=== PATIENT | male | born 1970 ===

== ENCOUNTER 2018-11-25 20:22 | Emergency (ER) | payer SELFPAY ==
[~2018-11-25] VITALS: Ht 177.8 cm; Wt 86.2 kg
[2018-11-25] MEDS ORDERED: TETANUS,DIPTH,PERTUSS P/F (BOOSTRIX) 0.5 ML VIAL IM STA (20:30)
[2018-11-25] MEDS ORDERED: RX-MUPIROCIN (BACTROBAN) 2% OINT 22 GM TUBE TOP STA (21:45)
[2018-11-25] MEDS ORDERED: CEFU500T63 PO (21:49)
--- NOTE | 2018-11-25 21:50 | ED General ---
General Chief Complaint: Bite-Animal/Human/Insect Stated Complaint: DOG BITE Nursing Triage Note: AMBULATORY INTO ED ROOM 5 FROM EMS WITH [employer]. PT LOUD, KEEPS STATING "THE DOG BIT ME. I'M GOING TO KILL THAT DOG." PT CONSTANTLY CUSSING, LOUD, UNABLE TO TRIAGE WITHOUT CONSTANT INTERUPPTIONS FROM PT TALKING AND ASKING RANDOM QUESTIONS. DOG BITE TO RIGHT SIDE EYEBROW AND BELOW RIGHT EYE. BLEEDING CLOTTED AT THIS TIME. Nursing Sepsis Screen: No Definite Risk Allergies and Home Medications Allergies Coded Allergies: Penicillins (Verified Allergy, Unknown, 11/25/18) Past Hfytmuo-Zebcfv-Otllqb Hx Patient Social History Alcohol Use: Regular Use Recreational Drug Use: Yes Drug of Choice: MARIJUANA Smoking Status: Never a Smoker Recent Foreign Travel: No Contact w/Someone Who Travel: No Recent Infectious Disease Expo: No Recent Hopitalizations: No Immunizations Up To Date Tetanus Booster (TDap): Unknown Seasonal Allergies Seasonal Allergies: No Past Medical History Surgeries: No Respiratory: No Cardiac: Yes Hypertension Neurological: No Genitourinary: No Gastrointestinal: No Musculoskeletal: No Endocrine: No HEENT: No Cancer: No Psychosocial: No Integumentary: No Blood Disorders: No Physical Exam Vital Signs Vital Signs - First Documented 11/25/18 20:51 Temp 98.5 B/P (MAP) 142/94 (110) Capillary Refill : Less Than 3 Seconds Height, Weight, BMI Height: 5'10.00" Weight: 190lbs. oz. [id number]; BMI Method:Estimated Progress/Results/Core Measures Suspected Sepsis Recent Fever Within 48 Hours: No Infection Criteria Present: None New/Unexplained Altered Menta: No Sepsis Screen: No Definite Risk SIRS Temperature:98.5 Pulse: Respiratory Rate: Blood Pressure 142 /94 Mean: 110 Results/Orders My Orders Orders - WILSON BURGESS DO Dipht,Pertuss(Acell),Tet Adult (Boostrix (11/25/18 20:30) Wound Dressing-Ed (11/25/18 20:32) Rx-Cefdinir Capsule (Rx-Omnicef Capsule) (11/26/18 09:00) Rx-Mupirocin 2% Oint (Rx-Bactroban) (11/25/18 21:45) Vital Signs/I&O 11/25/18 20:51 Temp 98.5 B/P (MAP) 142/94 (110) Capillary Refill : Less Than 3 Seconds Blood Pressure Mean: 110 Departure Impression Primary Impression: Dog bite of face Additional Impression: Ghwccnhoga-mqjeennap-zjmvmxx (DPT) vaccination administered at current visit Disposition: 01 HOME, SELF-CARE Condition: Stable Departure-Patient Inst. Patient Instructions: Animal Bites (DC), Diphtheria and Tetanus Toxoids, and Acellular Pertussis Vaccine Add. Discharge Instructions: CLEAN WOUNDS TWICE A DAY WITH ANTIBACTERIAL SOAP AND WATER, APPLY ANTIBIOTIC OINTMENT TO WOUNDS TWICE A DAY, EXCEPT DO NOT APPY TO AREA WITH SKIN GLUE LEAVE AREA WITH SKIN GLUE ALONE--GLUE WILL FALL OFF ON IT'S OWN IN A FEW DAYS TYLENOL AND MOTRIN NEEDED FOR PAIN FOLLOW UP WITH DR OF CHOICE NEEDED All discharge instructions reviewed with patient and/or family. Voiced understanding. Scripts Cefuroxime Axetil (Cefuroxime) 500 Mg Tablet 500 MG PO BID, #20 TAB Prov: WILSON BURGESS DO 11/25/18 WILSON BURGESS DO Nov 25, 2018 21:50
[2018-11-25] MEDS ORDERED: RX-CEFDINIR 300 MG CAP PPK #2 PO ONE (22:08)
[2018-11-25 22:20] VITALS: BP 135/90
[2018-11-26] MEDS ORDERED: RX-CEFDINIR 300 MG CAP PPK #2 PO SCH (09:00)
== END 2018-11-25 22:26 | disposition home or self-care (01) ==
LOC: ER 20:23
DX: S01.85XA Open bite of other part of head, initial encounter (principal); I10 Essential (primary) hypertension; F12.10 Cannabis abuse, uncomplicated; Z88.0 Allergy status to penicillin; Z23 Encounter for immunization; W54.0XXA Bitten by dog, initial encounter
CPT/HCPCS: 90715